=== PATIENT | female | born 1980 | race Two or more races ===

== ENCOUNTER 2018-02-07 07:38 | Outpatient (CLI) | payer OTHER | END 2018-02-07 07:46 | disposition home or self-care (01) | LOC: RX STUDY 07:38 | DX: N94.89 Other specified conditions associated with female genital organs and menstrual cycle (principal) ==

== ENCOUNTER 2022-11-10 13:06 | Outpatient (CLI) | payer OTHER | END 2022-11-10 13:15 | disposition home or self-care (01) | LOC: MRI 13:06 | DX: M51.16 Intervertebral disc disorders with radiculopathy, lumbar region (principal); M51.14 Intervertebral disc disorders with radiculopathy, thoracic region | CPT/HCPCS: 72147; 72149 ==